=== PATIENT | male | born 1985 | race Caucasian/White ===

== ENCOUNTER 2016-04-12 15:56 | Emergency (ER) | payer SELFPAY ==
[2016-04-12 16:40] VITALS: BP 121/76
== END 2016-04-12 16:50 | disposition left against medical advice (07) ==
LOC: UCCORT 15:56
DX: M25.511 Pain in right shoulder (principal); M54.2 Cervicalgia; Z53.21 Procedure and treatment not carried out due to patient leaving prior to being seen by health care provider

== ENCOUNTER 2017-06-02 20:37 | Emergency (ER) | payer OTHER ==
[2017-06-02 20:51] VITALS: BP 144/96
--- NOTE | 2017-06-02 21:07 | UC ---
Lower Extremity/Ankle HPI - HPI Summary HPI Summary: Pt c/o left foot pain and swelling after stepping off stair at ~ 2 foot height and inverting left ankle, 3 days ago - History of Current Complaint Chief Complaint: UCLowerExtremity Stated Complaint: LEFT FOOT INJURY Time Seen by Provider: 06/02/17 20:55 Hx Obtained From: Patient Pain Intensity: 5 - Allergies/Home Medications Allergies/Adverse Reactions: Allergies Allergy/AdvReac Type Severity Reaction Status Date / Time No Known Allergies Allergy Verified 06/02/17 20:47 PMH/Surg Hx/FS Hx/Imm Hx - Surgical History Surgical History: Yes Surgery Procedure, Year, and Place: T & A. SINUS SX - Social History Alcohol Use: Rare Substance Use Type: None Smoking Status (MU): Heavy Every Day Tobacco Smoker Amount Used/How Often: 2 packs per day Length of Time of Smoking/Using Tobacco: 16 YRS Have You Smoked in the Last Year: Yes Review of Systems Constitutional: Negative Skin: Negative Eyes: Negative ENT: Negative Respiratory: Negative Cardiovascular: Negative Gastrointestinal: Negative Genitourinary: Negative Motor: Decreased ROM - left foot/ankle Neurovascular: Negative Musculoskeletal: Arthralgia, Decreased ROM - left foot/ankle, Edema - left foot , Myalgia Psychological: Negative Is Patient Immunocompromised?: No All Other Systems Reviewed And Are Negative: Yes Physical Exam Triage Information Reviewed: Yes Appearance: Well-Appearing Vital Signs: Initial Vital Signs Temp 99 F 06/02/17 20:47 Pulse 61 06/02/17 20:47 Resp 18 06/02/17 20:47 BP 144/96 06/02/17 20:47 Pulse Ox 99 06/02/17 20:47 Vital Signs Reviewed: Yes Eye Exam: Normal ENT: Positive: Hearing grossly normal Neck exam: Normal Respiratory Exam: Normal Respiratory: Positive: No respiratory distress Musculoskeletal Exam: Other Musculoskeletal: Positive: Strength Limited @ - left foot/ankle, ROM Limited @ - left foot/ankle, Edema @ - left foot/ankle Neurological Exam: Normal Psychological Exam: Normal Skin Exam: Normal Diagnostics - Radiology No standard instances Radiology Interpretation Completed By: ED Physician - Negative for fracture Lower Extremity Course/Dx - Differential Dx/Diagnosis Differential Diagnosis/HQI/PQRI: Sprain, Strain Provider Diagnoses: left foot strain Discharge - Sign-Out/Discharge Documenting (check all that apply): Discharge - Discharge Plan Condition: Stable Disposition: HOME Patient Education Materials: Ankle Sprain (ED), R.I.C.E. Treatment (ED) Referrals: Frank Love MD [Medical Doctor] - If Needed (Please follow up with an orthopedic provider if symptoms do not improve. ) Gómez Lee MD [Primary Care Provider] - If Needed - Billing Disposition and Condition Condition: STABLE Disposition: HOME
--- NOTE | 2017-06-02 22:07 | RAD ---
Indication: Fall, left foot injury. 3 views of left foot demonstrates no fracture or dislocation. No other bone or joint abnormality is noted. IMPRESSION: No fracture of the left foot is noted.
== END 2017-06-02 21:44 | disposition home or self-care (01) ==
LOC: UCCORT 20:37
DX: S93.402A Sprain of unspecified ligament of left ankle, initial encounter (principal); X58.XXXA Exposure to other specified factors, initial encounter; Y92.9 Unspecified place or not applicable; F17.200 Nicotine dependence, unspecified, uncomplicated
CPT/HCPCS: 99212; G0463

== ENCOUNTER 2017-11-19 20:43 | Emergency (ER) | payer OTHER ==
[2017-11-19] MEDS ORDERED: DOXYcycline CAP(*) 100 MG PO ONE (20:59)
--- NOTE | 2017-11-19 21:04 | UC ---
UC General HPI - HPI Summary HPI Summary: Patient found a tick on the left side of his chest. He removed it prior to arrival. He notes that it was a small tick but site was very irritated that telemetry found it. Duration of the tick bite is unknown. He denies any associated fever, joint pains and rash aside from the red spot where he removed the tick. - History of Current Complaint Stated Complaint: TICK BITE Time Seen by Provider: 11/19/17 20:54 Hx Obtained From: Patient Associated Signs & Symptoms: Negative: Fever - Allergy/Home Medications Allergies/Adverse Reactions: Allergies Allergy/AdvReac Type Severity Reaction Status Date / Time No Known Allergies Allergy Verified 11/19/17 21:13 PMH/Surg Hx/FS Hx/Imm Hx Previously Healthy: Yes - Surgical History Surgical History: Yes Surgery Procedure, Year, and Place: T & A. SINUS SX - Family History Known Family History: Positive: Seizure Disorder, Other - [place] - Social History Occupation: Unemployed Lives: With Family Alcohol Use: Rare Substance Use Type: None Smoking Status (MU): Heavy Every Day Tobacco Smoker Amount Used/How Often: 2 packs per day Length of Time of Smoking/Using Tobacco: 16 YRS Have You Smoked in the Last Year: Yes - Immunization History Vaccination Up to Date: Yes Review of Systems Constitutional: Negative Skin: Negative Eyes: Negative ENT: Negative Respiratory: Negative Cardiovascular: Negative Gastrointestinal: Negative Genitourinary: Negative Motor: Negative Neurovascular: Negative Musculoskeletal: Negative Neurological: Negative Psychological: Negative Is Patient Immunocompromised?: No All Other Systems Reviewed And Are Negative: Yes Physical Exam Triage Information Reviewed: Yes Appearance: Well-Appearing Vital Signs Reviewed: Yes Eyes: Positive: Conjunctiva Clear ENT: Positive: Normal ENT inspection Neck: Positive: Supple, Nontender, No Lymphadenopathy Respiratory: Positive: Lungs clear, Normal breath sounds Cardiovascular: Positive: RRR, No Murmur Abdomen Description: Positive: Nontender, No Organomegaly, Soft Bowel Sounds: Positive: Present Musculoskeletal: Positive: ROM Intact Neurological: Positive: Alert Psychological: Positive: Age Appropriate Behavior Skin Exam: Normal, Other - Patient has a nickel-sized pink spots to his left anterior chest with a central abrasion that is consistent to local reaction to tick right and abrasion from removal. There is no associated bull's-eye. Course/Dx - Course Course Of Treatment: Duration of tick bite is not known. Patient has no signs or symptoms concerning for Lyme disease. I will treat him with single dose doxycycline to prevent Lyme disease. - Differential Dx - Multi-Symptom Provider Diagnoses: Tick bite left anterior trunk Discharge - Sign-Out/Discharge Documenting (check all that apply): Patient Departure All imaging exams completed and their final reports reviewed: No Studies - Discharge Plan Condition: Stable Disposition: HOME Patient Education Materials: Tick Bite (ED) Referrals: FABIAN Dockery [Medical Doctor] - If Needed - Billing Disposition and Condition Condition: STABLE Disposition: Home
[2017-11-19 21:13] VITALS: BP 136/85
== END 2017-11-19 21:33 | disposition home or self-care (01) ==
LOC: UCCORT 20:43
DX: T63.481A Toxic effect of venom of other arthropod, accidental (unintentional), initial encounter (principal); Y92.9 Unspecified place or not applicable; F17.210 Nicotine dependence, cigarettes, uncomplicated
CPT/HCPCS: 99212; A9270-GY; G0463

== ENCOUNTER 2018-06-23 16:31 | Emergency (ER) | payer SELFPAY ==
[2018-06-23 17:12] VITALS: BP 142/88
[2018-06-23] MEDS ORDERED: Acetaminophen TAB* 325 MG PO ONE (17:18)
[2018-06-23] MEDS ORDERED: Ibuprofen TAB* 600 MG PO ONE (17:19)
--- NOTE | 2018-06-23 19:17 | ED ---
Lower Extremity - HPI Summary HPI Summary: pt presents to the ED for evaluation of his right ankle pain. he is unable to ambulate and bear weight on his right ankle. he states he was getting out of the shower and he slipped and twisted his ankle. he denies any other injuries other than his right ankle injury. 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 - History of Current Complaint Chief Complaint: UCLowerExtremity Stated Complaint: RT ANKLE INJURY Hx Obtained From: Patient Mechanism Of Injury: Twisted Onset of Pain: Immediate Onset/Duration: Hours Severity Initially: Mild Severity Currently: Mild Pain Intensity: 6 - Allergies/Home Medications Allergies/Adverse Reactions: Allergies Allergy/AdvReac Type Severity Reaction Status Date / Time No Known Allergies Allergy Verified 06/23/18 17:04 Home Medications: Home Medications NK [No Home Medications Reported] 06/23/18 [History Confirmed 06/23/18] PMH/Surg Hx/FS Hx/Imm Hx Previously Healthy: Yes Endocrine/Hematology History: Denies: Hx Diabetes Cardiovascular History: Denies: Hx Pacemaker/ICD Respiratory History: Denies: Hx Asthma Sensory History: Denies: Hx Hearing Aid Psychiatric History: Denies: Hx Panic Disorder - Surgical History Surgery Procedure, Year, and Place: T & A. SINUS SX Infectious Disease History: No Infectious Disease History: Denies: Traveled Outside the [place] in Last 30 Days - Family History Known Family History: Positive: Seizure Disorder, Other - [place] - Social History Alcohol Use: Rare Substance Use Type: Reports: None Smoking Status (MU): Heavy Every Day Tobacco Smoker Type: Cigarettes Amount Used/How Often: 2 packs per day Length of Time of Smoking/Using Tobacco: 16 YRS Have You Smoked in the Last Year: Yes Review of Systems Constitutional: Negative Eyes: Negative ENT: Negative Cardiovascular: Negative Respiratory: Negative Gastrointestinal: Negative Genitourinary: Negative Positive: Other - right ankle pain Skin: Negative Neurological: Negative Psychological: Normal All Other Systems Reviewed And Are Negative: No Physical Exam Triage Information Reviewed: Yes Vital Signs On Initial Exam: Initial Vitals Temp Pulse Resp BP Pulse Ox 98 F 94 20 142/88 99 06/23/18 17:05 06/23/18 17:05 06/23/18 17:05 06/23/18 17:05 06/23/18 17:05 Vital Signs Reviewed: Yes Appearance: Positive: Well-Appearing, No Pain Distress, Well-Nourished Skin: Positive: Warm, Dry Head/Face: Positive: Normal Head/Face Inspection Eyes: Positive: Normal, EOMI, SCARLETT ENT: Positive: Hearing grossly normal Neck: Positive: Supple Respiratory/Lung Sounds: Positive: Clear to Auscultation, Breath Sounds Present Cardiovascular: Positive: Normal, RRR Abdomen Description: Positive: Nontender, Soft Bowel Sounds: Positive: Present Musculoskeletal: Positive: Limited @ - right ankle, Other - swelling noted to right ankle Neurological: Positive: Alert, Oriented to Person Place, Time, CN Intact II-III Psychiatric: Positive: Normal AVPU Assessment: Alert Procedures - Splinting Right Lower Extremity Hand-Made Type: orthoglass - short posterior splint applied to right leg. Splint: posterior walking Pre-Proc Neuro Vasc Exam: normal Post-Proc Neuro Vasc Exam: normal Diagnostics - Vital Signs Vital Signs Temp Pulse Resp BP Pulse Ox 06/23/18 17:05 98 F 94 20 142/88 99 - Laboratory Lab Statement: Any lab studies that have been ordered have been reviewed, and results considered in the medical decision making process. Lower Extremity Course/Dx - Course Course Of Treatment: xrays of right foot and ankle show no obvious fractures. On one view, there did appear to be a bony fragment. However, when the foot xray was done, the radiologist confirmed that there in fact was no fractures. pt given tylenol for discomfort and a work excuse. - Diagnoses Provider Diagnoses: Ankle sprain Discharge - Sign-Out/Discharge Documenting (check all that apply): Patient Departure All imaging exams completed and their final reports reviewed: Yes - Discharge Plan Condition: Stable Disposition: HOME Patient Education Materials: Ankle Sprain (ED), Splint Care (ED) Forms: *Work Release Referrals: No Primary Care Phys,NOPCP [Primary Care Provider] - Frank Love MD [Medical Doctor] - [facility] [Provider Group] Additional Instructions: use your crutches as instructed. keep your splint clean and dry. return if worse or any new symptoms. TAke tylenol and motrin for pain. - Billing Disposition and Condition Condition: STABLE Disposition: Home
== END 2018-06-23 19:22 | disposition home or self-care (01) ==
LOC: UCCORT 16:31
DX: S93.401A Sprain of unspecified ligament of right ankle, initial encounter (principal); W18.49XA Other slipping, tripping and stumbling without falling, initial encounter; Y93.E1 Activity, personal bathing and showering; Y92.012 Bathroom of single-family (private) house as the place of occurrence of the external cause; F17.210 Nicotine dependence, cigarettes, uncomplicated
CPT/HCPCS: 99213; A9270-GY; G0463